=== PATIENT | female | born 1955 | race American Indian/Alaskan Native ===

== ENCOUNTER 2021-04-13 06:16 | Day surgery (SDC) | payer MEDICARE ==
[2021-04-13] MEDS ORDERED: ASPIRIN EC 325 MG TAB PO NR (06:27)
[2021-04-13 06:56] LABS: INR 0.93 (0.87-1.13)
[2021-04-13] MEDS ORDERED: SODIUM CHLORIDE 0.9% 500 ML 500 ML IV SCH (07:00)
[2021-04-13] MEDS ORDERED: HEPARIN/NS 5000 UNIT/500ML 1,000 ML IR ONE (07:49)
[2021-04-13] MEDS ORDERED: HEPARIN 10,000 UNITS/10 ML VIAL ONE (07:49)
[2021-04-13] MEDS ORDERED: VERAPAMIL 5 MG/2 ML INJ ONE (07:51)
[2021-04-13] MEDS ORDERED: MIDAZOLAM 2 MG/2 ML INJ ONE (07:51)
[2021-04-13] MEDS ORDERED: fentaNYL 100 MCG/2 ML INJ ONE (07:51)
[2021-04-13] MEDS: LIDOCAINE (2%) 20 MG/1 ML VIAL 20 ML MDV INFILTRATI ONE ×2 (09:09→09:11)
[2021-04-13] MEDS: NITROGLYCERIN SYRINGE 3 ML ONE ×2 (09:10→09:11)
[2021-04-13] MEDS ORDERED: ATROPINE 0.1% (1 MG/10 ML) CARDIAC SYRINGE ONE (09:12)
[2021-04-13] MEDS ORDERED: traMADol 50 MG TAB PO PRN (09:27)
[2021-04-13] MEDS ORDERED: HYDROcodone/ACETAMINOPHEN 5-325 MG TAB PO PRN (09:27)
--- NOTE | 2021-04-13 09:28 | Short Stay Summary ---
Short Stay Documentation Date of service: 04/13/21 - History H&P: obtained from office - Allergies and Medications Current Medications: Allergies No Known Allergies Allergy (Unverified 04/13/21 06:26) Home Medications Medication Instructions Recorded Confirmed Last Taken Type Amlodipine Besylate [Norvasc] 5 mg PO DAILY 04/13/21 04/13/21 04/12/21 History 5 MG Aspirin EC [Halfprin EC] 81 mg PO QDAY 04/13/21 04/13/21 04/12/21 History 81 MG Metoprolol Xl [Metoprolol 100 mg PO QDAY 04/13/21 04/13/21 04/12/21 History SUCCINATE ER TAB] 100 MG Olmesartan/Hydrochlorothiazide 1 each PO DAILY 04/13/21 04/13/21 04/12/21 History [Olmesartan-Hctz 40-25 mg Tab] 1 EACH Active Medications Sodium Chloride (Nacl 0.9% 500 Ml) 500 mls @ 50 mls/hr IV DIRECT CHARITY Stop: 04/13/21 16:59 Last Admin: 04/13/21 07:04 Dose: 50 mls/hr Documented by: - Brief post op/procedure progress note Date of procedure: 04/13/21 Pre-op diagnosis: abnl stress test Post-op diagnosis: other Procedure: see report Anesthesia: local Estimated blood loss: minimal Pathology: none - Disposition Condition at discharge: Good Disposition: 01 HOME / SELF CARE / HOMELESS - Discharge Diagnoses (1) Hypertension Status: Chronic Qualifiers: Hypertension type: primary hypertension Qualified Code(s): I10 - Essential (primary) hypertension (2) Hyperlipemia, mixed Status: Chronic (3) Obesity (BMI 30-39.9) Status: Chronic (4) Abnormal nuclear stress test Status: Resolved Short Stay Discharge Plan Activity: advance as tolerated Diet: low fat, low cholesterol, low salt Wound: keep clean and dry Follow up with: JOSH ORONA MD [Primary Care Provider] - 7 Days
--- NOTE | 2021-04-13 09:35 | Electrocardiograph Report ---
[facility] Test Date: 2021-04-13 Test Time: 07:25:04 Pat Name: JENNIFER CONNELLY Department: Room: Gender: [employer] Supervisor: CHICHO : 1955 Requested By: EULALIO GRACIA Order Number: [id number] Reading MD: Eulalio Gracia Measurements Intervals [place] Rate: 49 P: 9 ND: 175 QRS: -3 QRSD: 92 T: -1 QT: 431 QTc: 391 Interpretive Statements Sinus bradycardia NONSPECIFIC REPOL ABNORMALITY, INFERIOR LEADS No previous ECG available for comparison Electronically Signed On 04-13-2021 9:34:27 EDT by Eulalio Gracia
--- NOTE | 2021-04-13 11:25 | Cardiac Catherization Report ---
DATE OF SERVICE: 04/13/2021 LEFT HEART CATHETERIZATION PRIMARY CARE PHYSICIAN: Dr. Pool. CLINICAL INFORMATION: This is a 66-year-old female with obesity, hypertension, hyperlipidemia with abnormal stress test with ecly-pi-vxltqwct ischemia in anterior region, is here for left heart catheterization. Left heart catheterization done with moderate sedation, started at 9:04, finished at 9:19, 15 minutes of moderate sedation was done. DESCRIPTION OF PROCEDURE: Procedure was done via the right radial artery, sterile technique and local anesthesia. A 6-Welsh radial sheath inserted. Left system engaged with JL3.5 catheter. Left main is large, long and patent. LAD is a large caliber vessel, is patent with oisx-sj-gqmofgtd tortuosity. Diagonal 1 is small to medium caliber vessel, patent. Circumflex, large caliber vessel, is patent, goes to a large ramus that is patent with qqejrkad-ue-ryasob tortuosity. OM1 is a medium caliber vessel, patent with odidvznq-pt-fkpooh tortuosity. RCA engaged with JR4 is a large caliber vessel, is patent with moderate tortuosity. PDA, PLV are minqp-kj-wbirgm caliber, vessels are patent. Moderate tortuosity. LV gram done in KAZAKH and ESTES shows normal LV function, LVEDP of 20-25 mmHg, LV is 144, aortic is 144/71. No gradient across the aortic valve on pullback. The 5-Welsh catheters all taken over guidewire. A 6-Welsh radial sheath was discontinued. Radial band applied. No hematoma, no bleeding. SUMMARY: Left main patent, LAD patent, ramus patent, RCA patent, all wupgxplk-zy-wyggsa tortuous vessels. RCA is large, dominant, patent, ywnqrnxh-qf-zjhbbk tortuous vessel with normal LV function. Continue risk factor modification. TID: [id number] RECEIPT: [id number] DANTE/ADDY/ADIEL cc: Dr. Pool
[2021-04-13 11:34] VITALS: BP 143/69
== END 2021-04-13 12:40 | disposition home or self-care (01) ==
LOC: CATHLABREC 06:16
PROVIDERS: ATTEND Internal Medicine
DX: R94.39 Abnormal result of other cardiovascular function study (principal); R07.9 Chest pain, unspecified; I10 Essential (primary) hypertension; E78.2 Mixed hyperlipidemia; G47.30 Sleep apnea, unspecified; M10.9 Gout, unspecified; E66.9 Obesity, unspecified; Z79.82 Long term (current) use of aspirin; Z79.899 Other long term (current) drug therapy; Z98.890 Other specified postprocedural states; Z68.41 Body mass index [BMI] 40.0-44.9, adult
CPT/HCPCS: 36415; 85610; 85730; 93005; 93458; 99156; C1894; J1644; J2250; J3010; J7040; J0461; Q9967